=== PATIENT | female | born 1945 | race Caucasian/White ===

== ENCOUNTER 2024-01-08 06:57 | Day surgery (SDC) | payer OTHER, SELFPAY ==
[2024-01-01 08:25] VITALS: BMI 27.4
[2024-01-01 08:51] LABS: Hematocrit 39.8 % (37.0-47.0); Hemoglobin 13.8 g/dL (12.0-16.0); Mean Corp Hgb Conc. 34.7 g/dL (33.0-37.0); Mean Corpuscular Hgb 33.3 pg (27.0-31.0); Mean Corpuscular Volume 95.9 fL (81.0-99.0); Mean Platelet Volume 9.6 fL (7.4-10.4); Platelet Count 244 10^3/uL (130-400); Red Blood Cell Count 4.15 10^6/uL (4.20-5.40); Red Cell Dist. Width 12.6 % (11.5-14.5); White Blood Cell Count 6.3 10^3/uL (4.8-10.8)
[2024-01-01 09:25] LABS: Blood Urea Nitrogen 13 mg/dl (7-17); Calcium 9.6 mg/dl (8.4-10.2); Carbon Dioxide 25 mmol/L (22-30); Chloride 108 mmol/L (98-107); Estimated Creatinine Clearance 59 ml/min; Glucose 92 mg/dl (70-99); Potassium 4.2 mmol/L (3.5-5.1); Sodium 140 mmol/L (135-145); eGFR > 60.00
[2024-01-08] VITALS (8 sets, daily range): BP systolic 111–137; BP diastolic 41–79; BMI 27.4
[2024-01-08] MEDS: Pyridium 200 MG PO (10:36)
[2024-01-08] MEDS: HEPARIN 5000 UNITS SC (10:36)
[2024-01-08] MEDS: NORMOSOL-R 1000 IV (10:38)
== END 2024-01-08 18:35 | disposition home or self-care (01) ==
LOC: SDS 06:57
PROVIDERS: ATTENDING PHYSICIAN Obstetrics & Gynecology; FAMILY PHYSICIAN Nurse Practitioner Adult Health; OTHER PHYSICIAN Internal Medicine Cardiovascular Disease; OTHER PHYSICIAN Internal Medicine Endocrinology, Diabetes & Metabolism
DX: N81.3 Complete uterovaginal prolapse (principal); N39.3 Stress incontinence (female) (male)
CPT/HCPCS: 57425; 58542; 88305; 88311; 36415; 80048; 85027; 86850; 86900; 86901; C1763

== ENCOUNTER → 2024-08-12 07:31 | Outpatient (REF) | payer OTHER, SELFPAY | LOC: HWWDC 07:31 | PROVIDERS: ATTENDING PHYSICIAN Nurse Practitioner Adult Health | DX: Z12.31 Encounter for screening mammogram for malignant neoplasm of breast (principal) | CPT/HCPCS: 77063; 77067 ==

== ENCOUNTER → 2024-08-26 11:09 | Outpatient (REF) | payer OTHER, SELFPAY | LOC: HWRAD 11:09 | PROVIDERS: ATTENDING PHYSICIAN Nurse Practitioner Adult Health | DX: M89.8X1 Other specified disorders of bone, shoulder (principal) | CPT/HCPCS: 73010 ==

== ENCOUNTER → 2024-12-01 06:54 | Outpatient (REF) | payer OTHER, SELFPAY | LOC: RAD 06:54 | PROVIDERS: ATTENDING PHYSICIAN Internal Medicine Endocrinology, Diabetes & Metabolism; FAMILY PHYSICIAN Nurse Practitioner Adult Health | DX: E05.20 Thyrotoxicosis with toxic multinodular goiter without thyrotoxic crisis or storm (principal) | CPT/HCPCS: 78014; A9516 ==

== ENCOUNTER → 2024-12-04 09:00 | Outpatient (REF) | payer OTHER, SELFPAY | LOC: RAD 09:00 | PROVIDERS: ATTENDING PHYSICIAN Internal Medicine Endocrinology, Diabetes & Metabolism | DX: E05.20 Thyrotoxicosis with toxic multinodular goiter without thyrotoxic crisis or storm (principal) | CPT/HCPCS: 79005; A9517 ==

== ENCOUNTER → 2025-03-13 08:44 | Outpatient (REF) | payer OTHER, SELFPAY | LOC: HWRAD 08:44 | PROVIDERS: ATTENDING PHYSICIAN Nurse Practitioner Adult Health | DX: Z78.0 Asymptomatic menopausal state (principal) | CPT/HCPCS: 77080 ==